=== PATIENT | female | born 1980 | race African-American/Black ===

== ENCOUNTER 2017-07-03 09:00 | Emergency (ER) | payer MEDICAID ==
[~2017-07-03] VITALS: Ht 172.7 cm; Wt 91.0 kg
[~2017-07-03 09:00] MED LIST: FURO-152 PO; LOSA50TA20 PO
[2017-07-03 09:49] VITALS: BP 148/100
[2017-07-03] MEDS ORDERED: BENZONATATE 200MG CAPSULE PO ONE (12:30)
[2017-07-03] MEDS ORDERED: ONDANSETRON 4MG ODT PO ONE (12:30)
== END 2017-07-03 13:27 | disposition home or self-care (01) ==
LOC: EDBD → ER 09:06
DX: J06.9 Acute upper respiratory infection, unspecified (principal); H92.02 Otalgia, left ear; I10 Essential (primary) hypertension; F12.10 Cannabis abuse, uncomplicated; Z98.890 Other specified postprocedural states
CPT/HCPCS: 87070; 87430; 87804; 99284; Q0162

== ENCOUNTER 2018-03-05 15:51 | Emergency (ER) | payer MEDICAID ==
[~2018-03-05] VITALS: Ht 142.2 cm; Wt 64.0 kg
[2018-03-05 16:03] VITALS: BP 117/78
[2018-03-05] MEDS ORDERED: VISCOUS LIDOCAINE 2% 15 ML UDC MM ONE (17:30)
== END 2018-03-05 18:29 | disposition home or self-care (01) ==
LOC: ER 16:45
DX: K21.9 Gastro-esophageal reflux disease without esophagitis (principal); J45.909 Unspecified asthma, uncomplicated
CPT/HCPCS: 99282